=== PATIENT | female | born 1955 | race Caucasian/White ===

== ENCOUNTER → 2018-03-13 | Day surgery (SDC) | payer OTHER ==
[~2018-03-13] MED LIST: LIDOCAINE 2% PF Vial for OR 5 ML VIAL.; PROPOFOL 40 ML IV
[2018-03-13] MEDS: IV RINGERS,LACTATED 1000ML 1,000 ML IV (09:43)
== END | disposition home or self-care (01) ==
LOC: ENDOS 09:08
DX: Z09 Encounter for follow-up examination after completed treatment for conditions other than malignant neoplasm (principal); Z86.010 Personal history of colon polyps; K64.0 First degree hemorrhoids; K57.30 Diverticulosis of large intestine without perforation or abscess without bleeding; I10 Essential (primary) hypertension; E78.00 Pure hypercholesterolemia, unspecified; Z86.73 Personal history of transient ischemic attack (TIA), and cerebral infarction without residual deficits; Z82.49 Family history of ischemic heart disease and other diseases of the circulatory system; Z83.79 Family history of other diseases of the digestive system; Z79.899 Other long term (current) drug therapy; Z96.651 Presence of right artificial knee joint; Z98.890 Other specified postprocedural states
CPT/HCPCS: 45378; J2704

== ENCOUNTER → 2021-06-26 | Outpatient (CLI) | payer MEDICARE ==
[2018-03-13 11:28] VITALS: BP 124/74
[~2021-06-26] MED LIST changes: +AMLO-186 PO; +ATOR20TA58 PO; +CARB200T PO; +CARB200T4 PO; -LIDOCAINE 2% PF Vial for OR 5 ML VIAL.; +LISI20TA18 PO; +MAGN400C PO; -PROPOFOL 40 ML IV
--- NOTE | 2021-06-26 16:10 | KCIC ---
EXAM: Chest, single view. HISTORY: Positive tuberculin skin test. COMPARISON: None. FINDINGS: A frontal view of the chest is obtained. There is no infiltrate, pleural effusion or pneumo thorax. The heart is normal in size. IMPRESSION: No acute pulmonary finding or evidence of pulmonary tuberculosis. Electronically signed by: Helena Galvez MD (06/26/2021 4:08 PM) [id number]
== END ==
LOC: KCIC 15:08
PROVIDERS: ATTEND Internal Medicine Pulmonary Disease
DX: A15.9 Respiratory tuberculosis unspecified (principal)
CPT/HCPCS: 71045